=== PATIENT | male | born 1955 | race Caucasian/White ===

== ENCOUNTER 2024-05-12 06:08 | Outpatient (CLI) | payer SELFPAY | END 2024-05-12 06:09 | disposition critical access hospital (66) | LOC: EMS 06:08 | DX: S01.81XA Laceration without foreign body of other part of head, initial encounter (principal); F10.90 Alcohol use, unspecified, uncomplicated | CPT/HCPCS: A0425; A0429 ==

== ENCOUNTER 2024-05-12 06:22 | Emergency (ER) | payer SELFPAY ==
[2024-05-12 06:49] LABS: BASOPHILS # (AUTO) 0.1 10^3/uL (0.0-0.1); BASOPHILS % (AUTO) 0.6 %; EOSINOPHILS # (AUTO) 0.1 10^3/uL (0.0-0.7); HGB - HEMOGLOBIN 14.5 g/dL (14.0-18.0); LYMPHOCYTES # (AUTO) 1.1 10^3/uL (1.5-3.5); LYMPHOCYTES % (AUTO) 10.6 %; MEAN CORPUSCULAR HEMOGLOBIN 33.1 pg (27.0-31.0); MEAN CORPUSCULAR VOLUME 100.5 fL (80.0-94.0); MEAN PLATELET VOLUME 10.3 fL (7.4-11.4); MONOCYTES # (AUTO) 0.9 10^3/uL (0.0-1.0); MONOCYTES % (AUTO) 9.1 %; NEUTROPHILS # (AUTO) 7.9 10^3/uL (1.5-6.6); NEUTROPHILS % (AUTO) 78.3 %; PLT - PLATELET COUNT 181 10^3/uL (130-450); RED BLOOD COUNT 4.38 10^6/uL (4.70-6.10); RED CELL DISTRIBUTION WIDTH 15.3 % (12.0-15.0); WHITE BLOOD COUNT 10.1 x10^3/uL (4.8-10.8)
[2024-05-12 07:09] LABS: ALBUMIN 4.1 g/dL (3.2-5.5); ALBUMIN/GLOBULIN RATIO 1.4 (1.0-2.2); BILIRUBIN,TOTAL 0.4 mg/dL (0.2-1.0); CALCIUM 9.1 mg/dL (8.5-10.3); CREATININE 0.7 mg/dL (0.6-1.3); ETOH - ETHANOL 204.6 mg/dL; POTASSIUM 3.7 mmol/L (3.5-4.5)
--- NOTE | 2024-05-12 07:26 | ED Physician Documentation ---
History of Present Illness - Stated complaint Stated Complaint: ETOH/HEAD INJ - Chief complaint Chief Complaint: Trauma Hd/Nk - History obtained from History obtained from: Patient, EMS - Additonal information Additional information: The patient comes to the emergency department via EMS for chief complaint of alcohol intoxication and head injury. The patient has no recollection of what happened. Per EMS, he was found walking down the road about a mile from his house. The patient was found to have extensive abrasions on the right side of his face with some swelling. He also was found to have a laceration to his right Inferolateral scalp. The patient states he has some right rib pain although he broke ribs on that side a couple of months ago. He denies abdominal pain. No difficulty breathing. No chest pain otherwise. No extremity pain. No neck pain or back pain. No other complaints at this time. PD PAST MEDICAL HISTORY - Past Surgical History Past Surgical History: No - Present Medications Home Medications: Ambulatory Orders Medication Instructions Recorded Confirmed No Known Home Medications 05/12/24 05/12/24 - Allergies Allergies/Adverse Reactions: Allergies Allergy/AdvReac Type Severity Reaction Status Date / Time No Known Drug Allergies Allergy Verified 05/12/24 06:26 - Social History Does the pt smoke?: Yes Smoking Status: Current every day smoker Does the pt drink ETOH?: Yes PD ED PE NORMAL - Vitals Vital signs reviewed: Yes - General General: Alert and oriented X 3, No acute distress, Well developed/nourished - HEENT HEENT: PERRL (No ocular trauma. No hyphema), EOMI, Moist mucous membranes, Other (Moderate right facial edema mainly centered over right maxilla. Multiple abrasions on right face. Skin tear over nasal bridge. Small abrasions on left forehead just superior to eyebrow. 2 cm laceration to right inferolateral scalp, bleeding controlled.) - Neck Neck: Supple, no meningeal sign, No bony TTP - Cardiac Cardiac: RRR, No murmur, Strong equal pulses - Respiratory Respiratory: No respiratory distress, Clear bilaterally - Abdomen Abdomen: Soft, Non tender, Non distended - Back Back: No spinal TTP - Derm Derm: Normal color, Warm and dry, No rash - Extremities Extremities: No deformity, Other (Mild edema right hand dorsum. No tenderness. 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 No obvious deficits otherwise. Not clinically intoxicated. ), Other - Psych Psych: Normal mood, Normal affect Results - Vitals Vitals: Oxygen O2 Source Nasal cannula - Labs Labs: Laboratory Tests 05/12/24 05/12/24 05/12/24 06:42 06:42 12:27 WBC 10.1 RBC 4.38 L Hgb 14.5 Hct 44.0 MCV 100.5 H MCH 33.1 H MCHC 33.0 RDW 15.3 H Plt Count 181 MPV 10.3 Neut # (Auto) 7.9 H Lymph # (Auto) 1.1 L [place] # (Auto) 0.9 Eos # (Auto) 0.1 Baso # (Auto) 0.1 Absolute Nucleated RBC 0.00 Nucleated RBC % 0.0 Sodium 140 Potassium 3.7 Chloride 104 Carbon Dioxide 26 Anion Gap 10.0 BUN 11 Creatinine 0.7 Estimated GFR (MDRD) 111 Glucose 127 H Calcium 9.1 Total Bilirubin 0.4 AST 60 H ALT 59 Alkaline Phosphatase 78 Total Protein 7.0 Albumin 4.1 Globulin 2.9 Albumin/Globulin Ratio 1.4 Lipase 35 Urine Color YELLOW Urine Clarity CLEAR Urine pH 6.0 Ur Specific [place] 1.020 Urine Protein NEGATIVE Urine Glucose (UA) NEGATIVE Urine Ketones TRACE Urine Occult Blood TRACE-INTA Urine Nitrite NEGATIVE Urine Bilirubin NEGATIVE Urine Urobilinogen 0.2 (NORMAL) Ur Leukocyte Esterase NEGATIVE Ur Microscopic Review NOT INDICATED Urine Culture Comments NOT INDICATED Ethyl Alcohol 204.6 - Rads (name of study) Head CT Relevant Findings:: Final report received, See rad report (Question of tiny subdural hematoma. Recommend repeat CT in 4 hours) CT face Relevant Findings:: Final report received, See rad report (Nasal bone fracture, otherwise negative) CT C-spine Relevant Findings:: Final report received, See rad report (Negative for acute findings) Repeat head CT Relevant Findings:: Final report received, See rad report (Stable appearance of the falx. Favor calcifications of a trace subdural hematoma. No other potentially acute intracranial findings.) Procedures - Laceration (location) Scalp Length in cm: 1.5 Wound type: Linear, Into subcut fat, Clean Wound preparation: Hibiclens, Irrigated copiously NS, Wound explored, To the base Skin layer closure: [place] Other: Patient tolerated well, No complications, Neurovascular intact, Tetanus UTD PD Medical Decision Making - ED course Complexity details: reviewed results, re-evaluated patient, considered differential, d/w patient ED course: The patient's laceration was repaired as above and he was sent for CTs of the face, head, and neck. There was a question of a tiny subdural hematoma on the initial CT and a repeat was recommended in 4 hours. The patient had a nasal bone fracture of uncertain Acuteness on CT but otherwise no facial injuries beyond soft tissue. C-spine showed no fractures. The patient was stable for discharge home. He was alert, talking, of a steady gait, and had a plan for what he would do after discharge. We have discussed wound care of the laceration and the timeline for staple removal. We have discussed the usual indications for return. Departure - Departure Disposition: 01 Home, Self Care Clinical Impression: Closed head injury Qualifiers: Encounter type: initial encounter Qualified Code(s): S09.90XA - Unspecified injury of head, initial encounter Scalp laceration Qualifiers: Encounter type: initial encounter Qualified Code(s): S01.01XA - Laceration without foreign body of scalp, initial encounter Condition: Stable Instructions: ED Head Injury Closed, ED Laceration Scalp Stitch Or Stap Comments: You had some sort of trauma to your head and face, though since you were intoxicated and do not have any recollection of it, nobody is sure exactly what happened. Your CT scans show a nasal bone fracture, And there was some question of some very minor bleeding in your brain on the first CT, so we had to repeat the CT some hours later to determine if this was expanding or not. On the second CT, it does not look like blood at all, which is good. You do have a cut on your scalp on the lower right which has been fixed with 2 apurva. You will need to have these removed in about 10 days. Forms: PCP List Discharge Date/Time: 05/12/24 15:04
[2024-05-12] MEDS: BACITRACIN ZINC OINT 1 PACKET TOP STA (07:32)
[2024-05-12] MEDS: ACETAMINOPHEN 325 MG TABLET PO STA (08:21)
--- NOTE | 2024-05-12 08:24 | CT Report ---
PROCEDURE: Head WO INDICATIONS: found down, obvious head injury TECHNIQUE: Noncontrast 4.5 mm thick angled axial sections acquired from the foramen magnum to the vertex. For r adiation dose reduction, the following was used: automated exposure control, adjustment of mA and/or kV according to patient size. COMPARISON: None. FINDINGS: Image quality: Diagnostic CSF spaces: Basal cisterns are patent. Lateral ventricles are symmetric. Volume: Vascular calcifications. Periventricular white matter disease is commonly seen with chronic m icroangiopathy. Volume loss is present. These findings are mild to moderate Brain: No significant hemorrhage. White-white differentiation is grossly maintained. Slight hyperdensity along anterior falx. Craniofacial structures: Facial findings are separately dictated IMPRESSION: Slight hyperdensity at the anterior falx could represent calcification, senescent thickening, or trac e hematoma as discussed in the preliminary report. Follow-up CT suggested in 4 to 6 hours. There is n o significant hemorrhage otherwise. Reviewed by: Arnaldo Greer MD on 05/12/2024 8:23 AM PDT Approved by: Arnaldo Greer MD on 05/12/2024 8:23 AM PDT Station ID: [id number]
--- NOTE | 2024-05-12 08:39 | CT Report ---
PROCEDURE: Maxillofacial WO INDICATIONS: found on side of road, obvious head/facial injury TECHNIQUE: Noncontrast 1.5 mm thick axial images acquired from the mandible through the frontal sinuses, with co devika and sagittal reformatting. For radiation dose reduction, the following was used: automated ex posure control, adjustment of mA and/or kV according to patient size. COMPARISON: None. FINDINGS: Image quality: Diagnostic Bones: Minimally displaced nasal fracture. Sequela of dental disease. Pterygoid plates are intact. Zy gomatic arches are intact. Orbital portillo appear intact. Mandible appears intact. Rightward nasal sept al deviation. Sinuses and mastoids: Mild ethmoid mucosal thickening. Soft tissues: Moderate periorbital swelling and hemorrhage. Orbits appear intact. Brain: Separately dictated IMPRESSION: There is a minimally displaced nasal fracture and rightward nasoseptal deviation, age indeterminate. No other significant facial fracture identified. Moderate periorbital swelling and hemorrhage. Called to the ED. Reviewed by: Arnaldo Greer MD on 05/12/2024 8:37 AM PDT Approved by: Arnaldo Greer MD on 05/12/2024 8:37 AM PDT Station ID: [id number]
--- NOTE | 2024-05-12 09:06 | CT Report ---
PROCEDURE: Cervical Spine WO INDICATIONS: found down on side of road, obvious head injury TECHNIQUE: Noncontrast 3 mm thick sections acquired from the skull base to the T4 level. Sagittal and coronal r eformats were then constructed. For radiation dose reduction, the following was used: automated exp osure control, adjustment of mA and/or kV according to patient size. COMPARISON: None. FINDINGS: Image quality: Diagnostic Bones: Moderate background degenerative changes. No acute displaced fracture or sonographic subluxati on. There is slight reversal of the normal cervical lordosis. Soft tissues: No pathologic prevertebral soft tissue swelling. IMPRESSION: Moderate background spondylosis. No acute fracture or traumatic subluxation. If there is high concern for further derangement, consider MRI evaluation. Agree with preliminary report Reviewed by: Arnaldo Greer MD on 05/12/2024 9:05 AM PDT Approved by: Arnaldo Greer MD on 05/12/2024 9:05 AM PDT Station ID: [id number]
[2024-05-12 12:35] LABS: BILIRUBIN,URINE NEGATIVE (NEGATIVE); CLARITY,URINE CLEAR (CLEAR); GLUCOSE, URINE (UA) NEGATIVE (NEGATIVE); KETONES,URINE (UA) TRACE mg/dL (NEGATIVE); LEUKOCYTE ESTERASE, URINE NEGATIVE (NEGATIVE); NITRITE,URINE NEGATIVE (NEGATIVE); OCCULT BLOOD,URINE TRACE-INTA (NEGATIVE); PROTEIN,URINE NEGATIVE (NEGATIVE); UROBILINOGEN,URINE 0.2 (NORMAL) E.U./dL (NORMAL)
--- NOTE | 2024-05-12 12:54 | CT Report ---
PROCEDURE: Head WO INDICATIONS: Follow up TECHNIQUE: Noncontrast 4.5 mm thick angled axial sections acquired from the foramen magnum to the vertex. For r adiation dose reduction, the following was used: automated exposure control, adjustment of mA and/or kV according to patient size. COMPARISON: CT head dated 05/12/2024 at 0641 hours. FINDINGS: Image quality: Excellent. CSF spaces: Basal cisterns are patent. No extra-axial fluid collections. Ventricles are normal in size and shape. Brain: No midline shift. No intracranial masses or hemorrhage. Hyperdensity along the falx is likel y calcification and unlikely trace subdural hematoma. It is stable. White-white matter interface is no rmal. 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 Intracranial caroti d calcifications. Age-related volume loss and small vessel ischemic change. Skull and face: Calvarium and visualized facial bones are intact, without suspicious lesions. Sinuses: Visualized sinuses and mastoids are clear. IMPRESSION: Stable appearance of falx. Favor calcifications over trace subdural hematoma. No other potentially ac [place] intracranial findings. Reviewed by: Chris Kraft MD on 05/12/2024 12:53 PM PDT Approved by: Chris Kraft MD on 05/12/2024 12:53 PM PDT Station ID: [id number]
[2024-05-12 15:14] VITALS: BP 157/79; O2SAT 97
== END 2024-05-12 15:04 | disposition home or self-care (01) ==
LOC: ED 06:22
DX: S09.90XA Unspecified injury of head, initial encounter (principal); S01.01XA Laceration without foreign body of scalp, initial encounter; X58.XXXA Exposure to other specified factors, initial encounter; F17.200 Nicotine dependence, unspecified, uncomplicated
CPT/HCPCS: 12001; 36415; 70450; 70486; 72125; 80053; 81003; 82077; 83690; 85025; 99284; A9270; 81001; 87086

== ENCOUNTER 2024-05-23 14:10 | Emergency (ER) | payer SELFPAY ==
[2024-05-23 14:22] VITALS: BP 141/90; O2SAT 97
--- NOTE | 2024-05-23 15:04 | ED Physician Documentation ---
History of Present Illness - Stated complaint Stated Complaint: STAPLE REMOVAL - Chief complaint Chief Complaint: General - Additonal information Additional information: 68-year-old male presents emerged department for staple removal to the right portion of his head. Patient was here 10 days ago for EtOH use fell and had a laceration to his right scalp. No signs symptoms of infection patient reports that he is overall feeling well. PD PAST MEDICAL HISTORY - Past Surgical History Past Surgical History: No - Present Medications Home Medications: Ambulatory Orders Medication Instructions Recorded Confirmed No Known Home Medications 05/12/24 05/12/24 - Allergies Allergies/Adverse Reactions: Allergies Allergy/AdvReac Type Severity Reaction Status Date / Time No Known Drug Allergies Allergy Verified 05/23/24 14:18 - Social History Does the pt smoke?: Yes Smoking Status: Current every day smoker Does the pt drink ETOH?: Yes Does the pt have substance abuse?: No - POLST Patient has POLST: No PD ED PE NORMAL - Vitals Vital signs reviewed: Yes - General General: Alert and oriented X 3, No acute distress, Well developed/nourished - Derm Derm: Other (well healed laceration to right scalp with 2 apurva intact) Results - Vitals Vitals: Vital Signs - 24 hr 05/23/24 14:19 Temperature 36.6 C Heart Rate 97 Respiratory 15 Rate Blood Pressure 141/90 H O2 Saturation 97 Oxygen O2 Source Room air PD Medical Decision Making - ED course ED course: 68-year-old male presents emerged part for staple removal. He had 2 apurva to the right side of his scalp no obvious signs of infection it appeared to be well-healed and intact with wound edges approximated. Apurva were removed by RN without any difficulty he was taught signs symptoms of infection and when to report back to the emergency department. Patient safe for discharge all questions answered. Departure - Departure Disposition: 01 Home, Self Care Clinical Impression: Removal of staple Instructions: ED Stap Removal No Complication Comments: Thank you for trusting us with your care. We have removed the apurva from the right side of your head. It is okay to wash your head with soap and water. You can apply bacitracin or Vaseline over the scab to help with healing and recovery. Please come back to the ER if you are noticing any signs or symptoms of infection which include redness, swelling, drainage that is yellow or green, fevers or chills. Forms: PCP List Discharge Date/Time: 05/23/24 15:41
== END 2024-05-23 15:41 | disposition home or self-care (01) ==
LOC: ED 14:10
DX: S01.01XD Laceration without foreign body of scalp, subsequent encounter (principal); W19.XXXD Unspecified fall, subsequent encounter
CPT/HCPCS: 99281